=== PATIENT | female | born 1995 | race American Indian/Alaskan Native ===

== ENCOUNTER 2021-11-11 20:35 | Emergency (ER) | payer OTHER | END 2021-11-11 21:10 | disposition home or self-care (01) | LOC: MW.ED 20:35 | DX: O22.41 Hemorrhoids in pregnancy, first trimester (principal); Z3A.01 Less than 8 weeks gestation of pregnancy | CPT/HCPCS: 99282; 99283 ==

== ENCOUNTER 2022-02-22 13:32 | Observation (INO) | payer BC, OTHER ==
[2022-02-22] MEDS ORDERED: Sodium Chloride 0.9% 2.5 ML Syringe FLUSH PRN ×2 (18:41→18:43)
[2022-02-22] MEDS ORDERED: Sodium Chloride 0.9% 20 ML SDV IV PRN ×2 (18:41→18:43)
[2022-02-22] MEDS ORDERED: Sodium Chloride 0.9% 10 ML Syringe FLUSH PRN ×2 (18:41→18:43)
[2022-02-22] MEDS ORDERED: Betamethasone Acetate/Betamethasone Sod Phosphate 30 MG/5 ML MDV IM ONE (18:42)
[2022-02-22] MEDS ORDERED: Lactated Ringers 1,000 ML IV SCH (18:45)
[2022-02-22] MEDS ORDERED: hydrOXYzine Pamoate 25 MG Cap PO PRN (21:43)
== END 2022-02-23 09:20 | disposition home or self-care (01) ==
LOC: MW.OBCHECK 13:32 → MW.OB 13:34 → MW.OBCHECK 21:41 → MW.OB 21:42
PROVIDERS: ADMIT Obstetrics & Gynecology; ATTEND Obstetrics & Gynecology
DX: O36.8330 Maternal care for abnormalities of the fetal heart rate or rhythm, third trimester, not applicable or unspecified (principal); Z20.822 Contact with and (suspected) exposure to COVID-19; Z3A.36 36 weeks gestation of pregnancy
CPT/HCPCS: 36415; 59025; 85027; 86592; 86850; 86900; 86901; 87635; 96372; G0378; J0702; J7120; U0002

== ENCOUNTER 2022-03-15 12:06 | Inpatient (IN) | payer BC, OTHER ==
[2022-03-15] MEDS ORDERED: Sodium Chloride 0.9% 20 ML SDV IV PRN (12:37)
[2022-03-15] MEDS ORDERED: Methylergonovine 0.2 MG/1 ML Amp IM PRN (12:37)
[2022-03-15] MEDS ORDERED: Misoprostol 200 MCG Tab PO PRN (12:37)
[2022-03-15] MEDS ORDERED: Misoprostol 25 MCG (1/4 of 100 MCG) Tab VAG PRN ×2 (12:37)
[2022-03-15] MEDS ORDERED: Tranexamic Acid 1,000 MG in Sodium Chloride 0.9% 100 ML IV PRN (12:37)
[2022-03-15] MEDS ORDERED: Sodium Chloride 0.9% 10 ML Syringe FLUSH PRN (12:37)
[2022-03-15] MEDS ORDERED: Ondansetron 4 MG/2 ML SDV IVPUSH PRN (12:37)
[2022-03-15] MEDS ORDERED: Carboprost Tromethamine 250 MCG/1 ML Amp IM PRN (12:37)
[2022-03-15] MEDS ORDERED: Water For Irrigation,Sterile 1,000 ML Container IRR PRN (12:37)
[2022-03-15] MEDS ORDERED: Terbutaline 1 MG/ML SDV SUBCUT PRN (12:37)
[2022-03-15] MEDS ORDERED: Butorphanol 1 MG/ML SDV IVPUSH PRN (12:37)
[2022-03-15] MEDS ORDERED: Lidocaine 1% 50 ML MDV INJECT PRN (12:37)
[2022-03-15] MEDS ORDERED: Sodium Chloride 0.9% 2.5 ML Syringe FLUSH PRN (12:37)
[2022-03-15] MEDS ORDERED: Lactated Ringers 1,000 ML IV SCH (12:45)
[2022-03-15] MEDS ORDERED: Oxytocin/0.9 % Sodium Chloride 30 UNIT/500 ML BAG IV SCH ×2 (12:45)
[2022-03-15] MEDS ORDERED: Ropivacaine HCl/PF 400 MG in Premix Bag 1 BAG EPIDUR SCH (13:00)
[2022-03-15] MEDS ORDERED: ePHEDrine 50 MG/ML SDV IVPUSH PRN ×2 (13:00)
[2022-03-15] MEDS ORDERED: Phenylephrine HCl In 0.9% NaCl 1 MG/10 ML Vial IVPUSH SCH (13:00)
[2022-03-15] MEDS ORDERED: Morphine 2 MG/ML SYRINGE ONE (18:23)
[2022-03-15] MEDS ORDERED: Morphine 2 MG/ML SYRINGE IVPUSH ONE (18:27)
[2022-03-15] MEDS ORDERED: Ibuprofen 800 MG Tab PO PRN (18:48)
[2022-03-15] MEDS ORDERED: Bisacodyl 10 MG Supp RECTAL PRN (18:48)
[2022-03-15] MEDS ORDERED: Measles, Mumps & Rubella Vaccine 0.5 ML SDV SUBCUT ONE (18:48)
[2022-03-15] MEDS ORDERED: Benzocaine/Menthol 20%-0.5% Spray 78 GM Cannister TOP PRN (18:48)
[2022-03-15] MEDS ORDERED: Ibuprofen 400 MG Tab PO PRN (18:48)
[2022-03-15] MEDS ORDERED: oxyCODONE 5 MG Tab PO PRN (18:48)
[2022-03-15] MEDS ORDERED: Docusate Sodium 100 MG Cap PO PRN (18:48)
[2022-03-15] MEDS ORDERED: Acetaminophen 500 MG Tab PO PRN ×2 (18:48)
[2022-03-15] MEDS ORDERED: Lanolin 100% Cream 7 GM Tube TOP PRN (18:48)
[2022-03-15] MEDS ORDERED: Witch Hazel Medicated Pads 40/Jar TOP PRN (18:48)
[2022-03-16] MEDS ORDERED: Iron Sucrose Complex 200 MG in Sodium Chloride 0.9% 100 ML IV ONE (08:50)
[2022-03-16] MEDS ORDERED: guaiFENesin 600 MG Tab.ER PO PRN (12:14)
== END 2022-03-16 21:40 | disposition home or self-care (01) | DRG 560 ==
LOC: MW.OB 12:06 → OBSVTOIN 17:57 → MW.OB 17:57
PROVIDERS: ADMIT Obstetrics & Gynecology; ATTEND Obstetrics & Gynecology
PROC: 10E0XZZ Delivery of Products of Conception, External Approach (ICD-10-PCS; principal; 2022-03-15)
PROC: 10907ZC Drainage of Amniotic Fluid, Therapeutic from Products of Conception, Via Natural or Artificial Opening (ICD-10-PCS; 2022-03-15)
PROC: 10D17Z9 Manual Extraction of Products of Conception, Retained, Via Natural or Artificial Opening (ICD-10-PCS; 2022-03-15)
DX: O99.02 Anemia complicating childbirth (principal); Z37.0 Single live birth; D64.9 Anemia, unspecified; Z86.16 Personal history of COVID-19; O76 Abnormality in fetal heart rate and rhythm complicating labor and delivery; O73.0 Retained placenta without hemorrhage; Z3A.39 39 weeks gestation of pregnancy
CPT/HCPCS: 36415; 59025; 59409; 82803; 85014; 85018; 85027; 86592; 86850; 86900; 86901; A9270-GY; J1756; J2270; J2590; J3490; J7120